=== PATIENT | male | born 1990 | race Caucasian/White ===

== ENCOUNTER 2016-08-06 23:14 | Emergency (ER) | payer BC, OTHER ==
[~2016-08-06] VITALS: Ht 172.7 cm; Wt 103.0 kg
[2016-08-06] MEDS ORDERED: IV NORMAL SALINE 1000ML BAG 1,000 ML IV ONE (23:30)
[2016-08-06] MEDS ORDERED: FENTANYL PF 100 MCG/2 ML VIAL. IV ONE (23:45)
[2016-08-06] MEDS ORDERED: DIPHTH,PERTUSS(ACELL),TET TOX 0.5 ML DISP.SYRIN. VAX IM ONE (23:45)
[2016-08-06] MEDS ORDERED: BACITRACIN TOPICAL OINT 14GM TUBE. TP ONE (23:45)
[2016-08-07] MEDS ORDERED: HYDR-971 PO (00:15)
[2016-08-07] MEDS ORDERED: FENTANYL PF 100 MCG/2 ML VIAL. IV ONE (00:15)
[2016-08-07] MEDS ORDERED: SILV20CR4 TP (00:16)
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
[2016-08-07 00:44] VITALS: BP 128/75
[2016-08-07] MEDS ORDERED: silver sulfADIAZINE 1% CREAM 25GM TUBE. TP ONE (00:45)
[2016-08-07] MEDS ORDERED: NAPR500T8 PO (00:53)
== END 2016-08-07 01:00 | disposition home or self-care (01) ==
LOC: ER 23:14
DX: T21.01XA Burn of unspecified degree of chest wall, initial encounter (principal); T21.02XA Burn of unspecified degree of abdominal wall, initial encounter; T31.0 Burns involving less than 10% of body surface; X08.8XXA Exposure to other specified smoke, fire and flames, initial encounter; Y93.89 Activity, other specified; Y92.89 Other specified places as the place of occurrence of the external cause; Y99.8 Other external cause status
CPT/HCPCS: 16025; 90471; 90715; 96361; 96374; 99284; J3010; J7030